=== PATIENT | male | born 1945 | race Asian ===

== ENCOUNTER 2020-04-02 11:42 | Inpatient (IN) | payer OTHER ==
[~2020-04-02] VITALS: Ht 165.1 cm; Wt 53.5 kg
[~2020-04-02 11:42] MED LIST: ADV500 IH; ALBU8HFA IH; ASPI-1198 PO; MONT10TA26 PO; OMEG1CAP43 PO; OMEP20CA12 PO; RANO500T5 PO
[2020-04-02] MEDS ORDERED: BISACODYL 10 MG RECTAL RECTAL SUPPOSITORY PR PRN (14:00)
[2020-04-02] MEDS ORDERED: IPRATROPIUM BROMIDE 0.5 MG/2.5 ML NEB SOLUTION NEB PRN (14:00)
[2020-04-02] MEDS ORDERED: ALBUTEROL SULFATE 2.5 MG/0.5 ML NEB SOLUTION NEB PRN (14:00)
[2020-04-02] MEDS ORDERED: ONDANSETRON HCL 4 MG/2 ML VIAL IVP PRN (14:00)
[2020-04-02] MEDS ORDERED: MORPHINE SULFATE 2 MG/ML SYRINGE IVP PRN (14:00)
[2020-04-02] MEDS ORDERED: 0.9% SODIUM CHLORIDE 10 ML SYRINGE IVP PRN (14:00)
[2020-04-02] MEDS: ALBUTEROL SULFATE 2.5 MG/0.5 ML NEB SOLUTION NEB SCH ×2 (14:00→20:32)
[2020-04-02] MEDS ORDERED: DOCUSATE SODIUM 100 MG CAPSULE PO PRN (14:00)
[2020-04-02] MEDS ORDERED: LORazepam 0.5 MG TABLET PO PRN (14:00)
[2020-04-02] MEDS ORDERED: ACETAMINOPHEN 325 MG TABLET PO PRN (14:00)
[2020-04-02] MEDS ORDERED: MAGNESIUM HYDROXIDE SUSPENSION 30 ML UDCUP PO PRN (14:00)
[2020-04-02] MEDS ORDERED: HYDROCODONE/ACETAMINOPHEN 5-325 MG TABLET PO PRN (14:00)
[2020-04-02] MEDS: IPRATROPIUM BROMIDE 0.5 MG/2.5 ML NEB SOLUTION NEB SCH ×2 (14:00→20:32)
[2020-04-02 15:42] LABS: HEMATOCRIT 30.4 % (41-53); HEMOGLOBIN 10.2 g/dL (13.5-17.5); MEAN CORPUSCULAR HEMOGLOBIN 35.7 pg (26.0-34.0); MEAN CORPUSCULAR HGB CONC 33.5 G/dL (31.0-37.0); MEAN CORPUSCULAR VOLUME 106 fL (80-100); PLATELET COUNT (AUTO) 401 K/uL (150-450); RED BLOOD CELL COUNT(AUTO) 2.86 MIL/uL (4.50-5.90); RED CELL DISTRIBUTION WIDTH 20.9 % (11.5-14.5)
[2020-04-02 15:55] LABS: INR 1.2 (0.9-1.1)
[2020-04-02 15:59] LABS: CALCIUM, TOTAL 9.2 mg/dL (8.8-10.5); CREATININE 2.79 mg/dL (0.60-1.30); POTASSIUM 5.3 mmol/L (3.5-5.1)
[2020-04-02 16:05] LABS: BILIRUBIN,TOTAL 5.9 mg/dL (0.1-1.0); TOTAL PROTEIN, SERUM 8.4 g/dL (6.4-8.2)
[2020-04-02 16:20] LABS: BAND NEUTROPHILS % (MANUAL) 10 % (0-5); EOSINOPHILS % (MANUAL) 1 % (1-6); LYMPHOCYTES % (MANUAL) 5 % (22-44); MONOCYTES % (MANUAL) 4 % (2-9); SEGMENTED NEUTROPHILS % 80 % (40-70); WBC MORPHOLOGY TOXIC VACUOLATION
[2020-04-02 16:22] LABS: PLATELET MORPHOLOGY COMMENT LARGE PLTS PRESENT
[2020-04-02 16:28] LABS: AMMONIA < 10 umol/L (11-32); TROPONIN I < 0.02 ng/mL (0.00-0.05)
[2020-04-02 17:27] VITALS: BP 109/63
[2020-04-02 19:48] VITALS: BP 114/62
[2020-04-02 23:15] VITALS: BP 104/56
[2020-04-03] MEDS: IPRATROPIUM BROMIDE 0.5 MG/2.5 ML NEB SOLUTION NEB SCH ×2 (02:24→20:22)
[2020-04-03] MEDS: ALBUTEROL SULFATE 2.5 MG/0.5 ML NEB SOLUTION NEB SCH ×2 (02:24→20:22)
[2020-04-03 04:40] VITALS: BP 101/51
[2020-04-03 08:10] VITALS: BP 100/55
[2020-04-03] MEDS: FLUTICASONE/SALMETEROL 500 MCG-50 MCG/INH DISKUS INHALER [28] IH SCH (08:37)
[2020-04-03] MEDS: RANOLAZINE 500 MG ER TABLET PO SCH (08:38)
[2020-04-03] MEDS: PANTOPRAZOLE SODIUM 40 MG DR TABLET PO SCH (08:38)
[2020-04-03] MEDS: MONTELUKAST SODIUM 10 MG TABLET PO SCH (08:38)
[2020-04-03] MEDS: OMEGA-3/DHA/EPA/FISH OIL 1,000 MG CAPSULE PO SCH (08:38)
[2020-04-03 11:40] VITALS: BP 98/55
[2020-04-03 16:57] VITALS: BP 107/54
[2020-04-03 20:16] VITALS: BP 92/54
[2020-04-04 00:32] VITALS: BP 107/52
[2020-04-04] MEDS: IPRATROPIUM BROMIDE 0.5 MG/2.5 ML NEB SOLUTION NEB SCH (01:34)
[2020-04-04] MEDS: ALBUTEROL SULFATE 2.5 MG/0.5 ML NEB SOLUTION NEB SCH (01:34)
[2020-04-04 05:10] VITALS: BP 98/53
[2020-04-04] MEDS: MONTELUKAST SODIUM 10 MG TABLET PO SCH (08:17)
[2020-04-04] MEDS: OMEGA-3/DHA/EPA/FISH OIL 1,000 MG CAPSULE PO SCH (08:17)
[2020-04-04] MEDS: PANTOPRAZOLE SODIUM 40 MG DR TABLET PO SCH (08:17)
[2020-04-04] MEDS: RANOLAZINE 500 MG ER TABLET PO SCH (08:17)
[2020-04-04 08:31] LABS: POTASSIUM 4.6 mmol/L (3.5-5.1)
[2020-04-04] MEDS: FLUTICASONE/SALMETEROL 500 MCG-50 MCG/INH DISKUS INHALER [28] IH SCH (09:00)
[2020-04-04 09:31] VITALS: BP 97/53
[2020-04-04 11:44] VITALS: BP 94/52
[2020-04-04 16:48] VITALS: BP 102/52
== END 2020-04-04 18:55 | disposition home or self-care (01) | DRG 374 ==
LOC: EMS 11:52 → 6S 13:54
PROVIDERS: ADMIT Internal Medicine; ATTEND Internal Medicine
DX: C19 Malignant neoplasm of rectosigmoid junction (principal); E43 Unspecified severe protein-calorie malnutrition; R18.0 Malignant ascites; C22.7 Other specified carcinomas of liver; Z68.1 Body mass index [BMI] 19.9 or less, adult; N17.9 Acute kidney failure, unspecified; J44.9 Chronic obstructive pulmonary disease, unspecified; F17.210 Nicotine dependence, cigarettes, uncomplicated; Z51.5 Encounter for palliative care; R14.0 Abdominal distension (gaseous); E87.5 Hyperkalemia
CPT/HCPCS: 87070; 87205; 93005; J3535